=== PATIENT | male | born 1975 | race African-American/Black ===

== ENCOUNTER 2021-08-19 10:40 | Emergency (ER) | payer MEDICAID ==
[~2021-08-19] VITALS: Ht 172.7 cm; Wt 77.0 kg
[2021-08-19 10:46] VITALS: BP 117/77
[2021-08-19] MEDS ORDERED: ACET-2708 PO (11:09)
[2021-08-19] MEDS ORDERED: NEOM10DR11 EACH EAR (11:09)
== END 2021-08-19 11:25 | disposition home or self-care (01) ==
LOC: ER 10:40
DX: H61.21 Impacted cerumen, right ear (principal); Z88.0 Allergy status to penicillin
CPT/HCPCS: 99283